=== PATIENT | male | born 1980 | race Caucasian/White ===

== ENCOUNTER 2021-01-12 12:14 | Emergency (ER) | payer OTHER ==
[2021-01-12 12:44] LABS: BASOPHIL 0.5 % (0-2); EOSINOPHIL 0.6 % (0-5); HCT 43.7 % (42.0-52.0); HGB 14.7 g/dl (13.2-18.0); LYMPHOCYTE 19.1 % (15-48); MCH 29.3 pg (25.0-31.0); MCHC 33.6 g/dL (32.0-36.0); MCV 87.2 fL (78.0-100.0); MONOCYTE 10.7 % (0-12); MPV 9.6 fL (6.0-9.5); NEUTROPHIL 68.7 % (41-80); NRBC 0; PLT 298 K/uL (150-400); RBC 5.01 M/uL (4.70-6.00); RDW 11.9 % (11.5-14.0); WBC 10.8 K/uL (4.0-10.5)
[2021-01-12 12:56] LABS: ALBUMIN 4.1 g/dL (3.4-5.0); BILIRUBIN - TOTAL 1.2 mg/dL (0.2-1.0); BUN/CREAT RATIO (CALC) 8.9 RATIO; CREATININE 0.79 mg/dL (0.67-1.17); POTASSIUM 3.2 mmol/L (3.5-5.1); TOTAL PROTEIN 7.1 g/dL (6.4-8.2)
== END 2021-01-12 14:18 | disposition home or self-care (01) ==
LOC: FER 12:14
PROVIDERS: Internal Medicine
DX: S06.0X0A Concussion without loss of consciousness, initial encounter (principal); I10 Essential (primary) hypertension; E11.9 Type 2 diabetes mellitus without complications; W22.8XXA Striking against or struck by other objects, initial encounter; Y92.009 Unspecified place in unspecified non-institutional (private) residence as the place of occurrence of the external cause
CPT/HCPCS: 36415; 70450; 80053; 85025

== ENCOUNTER 2021-10-08 12:42 | Emergency (ER) | payer OTHER ==
[2021-10-08] MEDS ORDERED: CEPHALEXIN500 MG PO (13:25)
== END 2021-10-08 13:40 | disposition home or self-care (01) ==
LOC: FER 12:42
DX: L03.116 Cellulitis of left lower limb (principal); L03.115 Cellulitis of right lower limb; L03.114 Cellulitis of left upper limb; E11.9 Type 2 diabetes mellitus without complications; I10 Essential (primary) hypertension; F17.210 Nicotine dependence, cigarettes, uncomplicated; Z28.310 Unvaccinated for COVID-19
CPT/HCPCS: 99282